=== PATIENT | female | born 1995 | race Caucasian/White ===

== ENCOUNTER 2017-02-13 21:11 | Emergency (ER) | payer BC ==
[2017-02-13] MEDS ORDERED: LIDOCAINE 2% VISCOUS 15 ML UDCUP PO ONE ×2 (21:18→22:40)
[2017-02-13] MEDS ORDERED: MAG HYDROX/AL HYDROX/SIMETH 30 ML UDCUP PO ONE ×2 (21:18→22:40)
[2017-02-13] MEDS ORDERED: HYOSCYAMINE SULFATE 0.125 MG TAB PO ONE ×2 (21:18→22:40)
[2017-02-13] MEDS ORDERED: NS 1,000 ML IV ONE (21:18)
[2017-02-13] MEDS ORDERED: METOCLOPRAMIDE 10 MG/2 ML VIAL IVP ONE (21:18)
[2017-02-13] MEDS ORDERED: FAMOTIDINE 20 MG/NACL 50 ML IV ONE (21:18)
--- NOTE | 2017-02-13 21:22 | EDPHY ---
H & P Time Seen by Provider: 02/13/17 21:19 HPI/ROS: HPI: This is a 21-year-old female who presents with Chief Complaint: Epigastric pain Location: Epigastric Quality: Pain Duration: 3-5 hours ago Signs and Symptoms: no fever, no nausea, + vomiting, no hematemesis, no blood in stool, no abdominal bloating, no diarrhea, no back pain, no urinary symptoms , + indigestion, no chest pain, no shortness of breath Timing: Acute on chronic Severity: 01/19 Context: Patient complains of sudden onset severe, burning, nonradiating epigastric pain that started several hours prior to arrival. She went to bed and tried to rest but the pain was unrelieved so she called EMS. She has not eaten dinner tonight. She vomited 2 times prior to arrival. She does report intolerance to certain foods including fried, gluten, spicy. reports that she has a history GERD and is currently taking Protonix twice a day and Carafate with a scheduled EGD March 12 with GI of the [facility]. Last bowel movement yesterday. Last menstrual period 3-4 weeks ago. Denies vaginal bleeding/ discharge. Denies regular NSAID use. Does admit that she is under considerable stress. Modifying Factors: See above Comment: ROS: see HPI Constitutional: No fever, no chills, no weight loss Eyes: No blurred vision Respiratory: No shortness of breath, no cough Cardiovascular: No chest pain, no palpitations Gastrointestinal: + nausea,+ vomiting, no diarrhea, no hematemesis, no blood in stool Genitourinary: No dysuria, no blood in urine Extremities: No myalgias, no edema Neurologic: No weakness, no numbness Skin: No rashes, no petechiae Hematologic: No bruising, no bleeding MEDICAL/SURGICAL/SOCIAL HISTORY: Medical history: Depression, GERD. Surgical history: Denies Social history: Local college student CONSTITUTIONAL: Extremely well-appearing petite teenage white female, awake and alert, no obvious distress HEENT: Atraumatic and normocephalic, PERRL, EOMI. Tympanic membranes clear. Oropharynx clear, no exudate and moist pink mucosa. Airway patent. No lymphadenopathy. No meningismus. Cardiovascular: Normal S1/S2, regular rate, regular rhythm, without murmur rub or gallop. PULMONARY/CHEST: Symmetrical and nontender. Clear to auscultation bilaterally. Good air movement. No accessory muscle usage. ABDOMEN: Soft, nondistended, moderate reproducible epigastric tenderness, no right upper quadrant tenderness, no rebound, no guarding, no peritoneal signs, no masses or organomegaly. No CVAT. EXTREMITIES: 2/2 pulses, strength 5/5, no deformities, no clubbing, no cyanosis or edema. NEUROLOGICAL: no focal neuro deficits. GCS 15. SKIN: Warm and dry, no erythema. no rash. Good capillary refill. Source: Patient Exam Limitations: No limitations Constitutional: Initial Vital Signs Temperature (C) 37.4 C 02/13/17 21:11 Heart Rate 71 02/13/17 21:11 Respiratory Rate 16 02/13/17 21:11 Blood Pressure 126/81 H 02/13/17 21:11 O2 Sat (%) 95 02/13/17 21:11 O2 Delivery Mode Room Air Allergies/Adverse Reactions: No Known Allergies Allergy (Unverified 02/13/17 21:25) Home Medications: Medication Instructions Recorded Pantoprazole Sodium 02/13/17 Promethazine HCl [Phenergan 12.5mg 12.5 mg PO Q6 PRN #12 tablet 02/13/17 tab] Sucralfate 02/13/17 Medical Decision Making - Diagnostics Imaging Results: Imaging Impressions Abdomen Ultrasound 02/13/17 21:18 Impression: 1. No acute findings. 2. Mild fatty infiltration of the liver with elongation of the right hepatic lobe which could be related to a Telly's lobe (normal variant) or hepatomegaly. Findings discussed with Anita Vang 02/13/2017 at 22:00. Abdomen X-Ray 02/13/17 22:13 Impression: No acute findings in the abdomen. ED Course/Re-evaluation: Labs, IV fluids, IV medications, right upper quadrant ultrasound ordered Suspect gastritis 2124: Given IV fluids, IV Pepcid, IV Reglan, GI cocktail 0: Called by radiologist who advised ultrasound shows an unremarkable gallbladder; no pancreatitis; fatty liver. KUB shows no free air 0: Reassessed patient and reports that she fluids throughout the GI cocktail but epigastric pain is better. Decision to give IV Phenergan and then GI cocktail again 2320: Reassessed patient and abdomen is soft with minimal pain. Advised to call [facility] to reschedule follow-up appointment in the next several days as well as re-evaluate obtaining the EGD sooner. Patient passed p.o. trial prior to discharge. No signs of hemorrhage/acute kidney injury/electrolyte imbalance/elevated LFTs Leukocytosis ptosis noted in the labs likely due to the vomiting prior to arrival. Differential Diagnosis: Abdominal pain including but not limited to appendicitis, cholecystitis, gastritis and urinary tract infection. - Data Points Laboratory Results: Laboratory Results 02/13/17 21:15 02/13/17 21:15 02/13/17 02/13/17 02/13/17 22:00 21:15 21:15 WBC RBC Hgb Hct MCV MCH MCHC RDW Plt Count MPV Neut % (Auto) Lymph % (Auto) [place] % (Auto) Eos % (Auto) Baso % (Auto) Nucleat RBC Rel Count Absolute Neuts (auto) Absolute Lymphs (auto) Absolute Monos (auto) Absolute Eos (auto) Absolute Basos (auto) Absolute Nucleated RBC Immature Gran % Immature Gran # Sodium 145 mEq/L H mEq/L (134-144) Potassium 3.9 mEq/L mEq/L (3.5-5.2) Chloride 103 mEq/L mEq/L (97-110) Carbon Dioxide 26 mEq/l mEq/l (22-31) Anion Gap 16 mEq/L mEq/L (8-16) BUN 14 mg/dL mg/dL (7-23) Creatinine 0.8 mg/dL mg/dL (0.6-1.0) Estimated GFR > 60 Glucose 83 mg/dL mg/dL (70-100) Calcium 10.0 mg/dL mg/dL (8.5-10.4) Total Bilirubin 0.9 mg/dL mg/dL (0.1-1.4) Conjugated Bilirubin 0.2 mg/dL mg/dL (0.0-0.5) Unconjugated Bilirubin 0.7 mg/dL mg/dL (0.0-1.1) AST 17 IU/L IU/L (14-46) ALT 29 IU/L IU/L (9-52) Alkaline Phosphatase 75 IU/L IU/L (38-126) Total Protein 8.1 g/dL g/dL (6.3-8.2) Albumin 4.8 g/dL g/dL (3.5-5.0) Lipase 102 IU/L IU/L (23-300) Beta HCG, Qual NEGATIVE Urine Color YELLOW Urine Appearance MODERATELY TURBID Urine pH 8.0 H (5.0-7.5) Ur Specific [place] 1.020 (1.002-1.030) Urine Protein NEGATIVE (NEGATIVE) Urine Ketones NEGATIVE (NEGATIVE) Urine Blood NEGATIVE (NEGATIVE) Urine Nitrate NEGATIVE (NEGATIVE) Urine Bilirubin NEGATIVE (NEGATIVE) Urine Urobilinogen NEGATIVE EU EU (0.2-1.0) Ur Leukocyte Esterase TRACE H (NEGATIVE) Urine RBC NONE SEEN /hpf /hpf (0-3) Urine WBC 1-3 /hpf /hpf (0-3) Ur Epithelial Cells TRACE /lpf /lpf (NONE-1+) Amorphous Sediment PRESENT /hpf /hpf (NONE-1+) Urine Bacteria TRACE /hpf H /hpf (NONE SEEN) Urine Mucus TRACE /lpf /lpf (NONE-1+) Urine Glucose NEGATIVE (NEGATIVE) 02/13/17 21:15 WBC 18.33 10^3/uL H 10^3/uL (3.80-9.50) RBC 4.83 10^6/uL 10^6/uL (4.18-5.33) Hgb 15.4 g/dL g/dL (12.6-16.3) Hct 43.4 % % (38.0-47.0) MCV 89.9 fL fL (81.5-99.8) MCH 31.9 pg pg (27.9-34.1) MCHC 35.5 g/dL g/dL (32.4-36.7) RDW 12.1 % % (11.5-15.2) Plt Count 301 10^3/uL 10^3/uL (150-400) MPV 9.9 fL fL (8.7-11.7) Neut % (Auto) 79.8 % H % (39.3-74.2) Lymph % (Auto) 13.0 % L % (15.0-45.0) Amador % (Auto) 5.8 % % (4.5-13.0) Eos % (Auto) 0.3 % L % (0.6-7.6) Baso % (Auto) 0.4 % % (0.3-1.7) Nucleat RBC Rel Count 0.0 % % (0.0-0.2) Absolute Neuts (auto) 14.63 10^3/uL H 10^3/uL (1.70-6.50) Absolute Lymphs (auto) 2.39 10^3/uL 10^3/uL (1.00-3.00) Absolute Monos (auto) 1.06 10^3/uL H 10^3/uL (0.30-0.80) Absolute Eos (auto) 0.06 10^3/uL 10^3/uL (0.03-0.40) Absolute Basos (auto) 0.07 10^3/uL 10^3/uL (0.02-0.10) Absolute Nucleated RBC 0.00 10^3/uL 10^3/uL (0-0.01) Immature Gran % 0.7 % % (0.0-1.1) Immature Gran # 0.12 10^3/uL H 10^3/uL (0.00-0.10) Sodium Potassium Chloride Carbon Dioxide Anion Gap BUN Creatinine Estimated GFR Glucose Calcium Total Bilirubin Conjugated Bilirubin Unconjugated Bilirubin AST ALT Alkaline Phosphatase Total Protein Albumin Lipase Beta HCG, Qual Urine Color Urine Appearance Urine pH Ur Specific [place] Urine Protein Urine Ketones Urine Blood Urine Nitrate Urine Bilirubin Urine Urobilinogen Ur Leukocyte Esterase Urine RBC Urine WBC Ur Epithelial Cells Amorphous Sediment Urine Bacteria Urine Mucus Urine Glucose Medications Given: Discontinued Medications Al Hydroxide/Mg Hydroxide (Maalox Susp) 30 ml PO ONCE ONE Stop: 02/13/17 21:19 Last Admin: 02/13/17 21:34 Dose: 30 ml Al Hydroxide/Mg Hydroxide (Maalox Susp) 30 ml PO EDNOW ONE Stop: 02/13/17 22:41 Last Admin: 02/13/17 22:46 Dose: 30 ml Hyoscyamine Sulfate (Levsin, Hyomax-Sl) 0.25 mg PO ONCE ONE Stop: 02/13/17 21:19 Last Admin: 02/13/17 21:33 Dose: 0.25 mg Hyoscyamine Sulfate (Levsin, Hyomax-Sl) 0.25 mg PO EDNOW ONE Stop: 02/13/17 22:41 Last Admin: 02/13/17 22:46 Dose: 0.25 mg Sodium Chloride (Ns) 1,000 mls @ 0 mls/hr IV EDNOW ONE; Wide Open PRN Reason: Protocol Stop: 02/13/17 21:19 Last Admin: 02/13/17 21:33 Dose: 1,000 mls Famotidine/Sodium Chloride (Pepcid 20 Mg (Premix)) 50 mls @ 200 mls/hr IV EDNOW ONE Stop: 02/13/17 21:32 Last Admin: 02/13/17 21:33 Dose: 50 mls Lidocaine (Lidocaine 2% Viscous) 15 ml PO ONCE ONE Stop: 02/13/17 21:19 Last Admin: 02/13/17 21:34 Dose: 15 ml Lidocaine (Lidocaine 2% Viscous) 15 ml PO EDNOW ONE Stop: 02/13/17 22:41 Last Admin: 02/13/17 22:46 Dose: 15 ml Metoclopramide HCl (Reglan Injection) 10 mg IVP EDNOW ONE Stop: 02/13/17 21:19 Last Admin: 02/13/17 21:34 Dose: 10 mg Promethazine HCl (Phenergan) 25 mg IVP EDNOW ONE Stop: 02/13/17 22:39 Last Admin: 02/13/17 22:48 Dose: 12.5 mg Departure - Departure Disposition: Home, Routine, Self-Care Clinical Impression: Peptic ulcer disease Gastritis Qualifiers: Gastritis type: other gastritis Chronicity: chronic Gastritis bleeding: without bleeding Qualified Code(s): K29.50 - Unspecified chronic gastritis without bleeding Condition: Good Instructions: Gastroesophageal Reflux Disease (ED), Diet for Stomach Ulcers and Gastritis (ED) Additional Instructions: Please continue to take Protonix twice a day and Carafate 4 times a day. You may use promethazine every 4 hours as needed for nausea. Please see frequent small meals and avoid foods that will upset your stomach. Called GI of the [place] is Wednesday to have year EGD scheduled earlier and to be seen for follow-up. Referrals: Patient,NotPresent [Unknown] - As per Instructions [facility] [Provider Group] - 2-3 days, call for appt. Prescriptions: Promethazine HCl [Phenergan 12.5mg tab] 12.5 mg PO Q6 PRN #12 tablet PRN Reason: Nausea/Vomiting, Use 1st
[2017-02-13 21:30] VITALS: RESP 16
[2017-02-13 21:31] LABS: PLATELET COUNT 301 10^3/uL (150-400)
[2017-02-13] MEDS ORDERED: PROMETHAZINE HCL 25 MG/ML INJ IVP ONE (22:38)
[2017-02-13 23:38] VITALS: BP 127/72; PULSE 82; TEMP 99; O2SAT 96
== END 2017-02-13 23:30 | disposition home or self-care (01) ==
PROC: 3E0337Z Introduction of Electrolytic and Water Balance Substance into Peripheral Vein, Percutaneous Approach (ICD-10-PCS; principal; 2017-02-13)
DX: K29.50 Unspecified chronic gastritis without bleeding (principal); K27.9 Peptic ulcer, site unspecified, unspecified as acute or chronic, without hemorrhage or perforation; E86.9 Volume depletion, unspecified
CPT/HCPCS: 96365; J2550; J2765

== ENCOUNTER 2017-11-27 | Emergency (ER) | payer BC | END 2017-11-27 19:49 | disposition home or self-care (01) ==